=== PATIENT | male | born 1980 | race Caucasian/White ===

== ENCOUNTER 2017-03-12 11:38 | Emergency (ER) | payer OTHER ==
[~2017-03-12] VITALS: Ht 185.4 cm; Wt 77.3 kg
[2017-03-12 11:45] VITALS: PULSE 65; RESP 20; O2SAT 100
--- NOTE | 2017-03-12 12:17 | ED.REPORT ---
HPI-Abd Pain M Under 38 Date of Service Mar 12, 2017 ED Provider: Ron Toussaint PA-C Anh is a 36-year-old male presenting to emergency Department with complaint of nausea and vomiting. Forte 7 year history of episodes of intractable vomiting requiring treatment in hospital. Reports typically improves with fluids, antiemetics, and Dilaudid. States they use to occur on 3-4 month basis, is roughly one year since he has had similar episode. This episode began 2 days ago. Patient sought care at the [facility] urgent care. Labs and CT were performed which were all reassuring per the patient. Discharged after fluids, antiemetics significant improvement. Reports eating relatively normally yesterday. Symptoms recurred this morning and he sought care at the [facility]. Treated there with 2 L normal saline, antiemetics. Labs and abdominal x-ray were obtained, all reassuring. Symptoms were not significant improved however the patient is referred to the emergency department. Admits repeated episodes of vomiting and retching, non-ileus, nonbloody. Admits one episode of diarrhea prior to the onset of symptoms. Admits diffuse crampy abdominal pain, headache, chills. Admits history of migraines, daily nearly continuous use of marijuana which he smokes. Denies fever, urinary symptoms Nursing Notes Stated Complaint: STOMACH PAIN Chief Complaint: Male Abdominal Pain Nursing Notes Reviewed: Yes Allergies: Coded Allergies: No Known Allergies (Unverified , 03/12/17) Scheduled Ondansetron ODT (Ondansetron ODT) 8 Mg Tab.rapdis 8 MG PO TID Scheduled PRN Metoclopramide ODT (Metoclopramide ODT) 5 Mg Tab.rapdis 5 MG PO QID PRN PRN For Nausea General Time Seen by MD: 11:50 Chief Complaint Other (vomiting) Past Medical History Past Medical History Migraines Social History Drug Use: Other (daily marijuana) Review of Systems General: Denies fever, chills, malaise. HEENT: That headache Respiratory: Denies dyspnea, cough, shortness of breath, wheezing. Cardiovascular: Denies chest pain, palpitations. Gastrointestinal: Mid abdominal pain, diarrhea, vomiting Otherwise as noted in HPI. Physical Exam General: Ill appearing, well developed, well nourished, moderate distress. Head: Atraumatic, normocephalic. Eyes: No scleral icterus or injection. No discharge. Vision grossly intact. ENT: Voice clear, hearing grossly intact. Respiratory: Regular rate and rhythm. Breath sounds present, clear to auscultation and equal bilaterally. No respiratory distress. No increased work of breathing, speaks in complete sentences. Cardiovascular: Regular rate and rhythm, without murmur, gallop or rub. No pedal edema. Gastrointestinal: Abdomen flat and non-tender without guarding or rebound. Bowel sounds normoactive. Back: Normal to inspection, negative CVA tenderness. Skin: Warm and dry. Neurological: Grossly nonfocal. Psychological: Alert and oriented. Speech appropriate, linear and logical. Behavior appropriate. Initial Vital Signs Vital Signs (First) Date Time Temp Pulse Resp B/P Pulse Ox O2 Delivery O2 Flow Rate FiO2 03/12/17 11:45 37 65 20 100 Room Air 03/12/17 13:56 121/74 Interpretation & Diagnostics Interpretation & Diagnostics: Records obtained from [facility] of visit 03/10/2017 indicating leukocytosis of 17.56 with a left shift unremarkable urinalysis, normal lipase, normal CMP. CT abdomen and pelvis with IV contrast is significant for "1. mild nonspecific periportal edema in the liver. 2. Unusual pattern of gastric fold thickening, and sequestration of the duodenum and proximal volar jejunal loops, without bowel distention, free air or convincing pneumatosis. Findings may represent an unusual presentation of infectious/inflammatory enteritis. If symptoms persist, recommend close follow-up with abdominal radiographs and/or CT." Lab Results Interpretation Test 03/12/17 12:52 03/12/17 13:24 Hold Chavez Top Tube Received (Received) Hold Purple Top Tube Received (Received) Hold Blue Top Tube Received (Received) Hold Milroy Top Tube Received (Received) Re-Eval/Medical Decision Med Decision/Clinical Course Otherwise healthy 36-year-old male with a history of cyclical vomiting. Since emergency Department with nausea and vomiting. First began 2 days ago, treated at [facility] in [place], with some improvement. Labs there showed leukocytosis with a left shift, CT scan is generally reassuring though shows gastric fold, fecal is aeration of the duodenum and proximal jejunal loops without bowel distention. Otherwise unremarkable him a discharged in improved condition. Reports normal diet yesterday, worse symptoms this morning. Seen at the [facility], treated with normal saline and antiemetics with minimal improvement. Reassuring abdominal x-ray. Patient has referral for GI from the [facility]. Referred to emergency department because symptoms cannot be resolved. Records are obtained from [facility] and reviewed. Physical examination is generally benign with a nontender abdomen, though the patient appears quite uncomfortable and is retching. Vital signs are normal. Treatment is initiated with IV, NS, Reglan, Benadryl, dexamethasone. Symptoms improved. On reexamination the patient remains nauseous. Haldol is provided which is helpful, patient wishes to be discharged to home. I believe this is most likely cannabis hyperemesis syndrome and advised patient that period of abstinence would be necessary to confirm this. I am reassured against more concerning conditions such as a bacterial gastroenteritis, obstruction, cholecystitis, appendicitis, ulcer, perforation, upper GI bleed, diabetic gastroparesis. I discussed the case with Dr. Salgado and we believe he is stable and safe to be discharged. Advised patient to follow through on the GI follow-up arranged at the [facility]. Provided prescriptions for ondansetron and Reglan. Advised regarding primary care follow-up, provided emergency return precautions. Patient verbalized understanding of, and consent to, the plan. Re-Evaluation/Progress #1: Time of Eval: 13:36 Re-Evaluation/Progress Note: Report some improvement, continuing nausea. Re-Evaluation/Progress #2: Time of Eval: 14:38 Re-Evaluation/Progress Note: Patient reviewed reports no more vomiting, significant reduction in nausea, negative pain. Wishes to be discharged home. Consultation : Referral / Consult Name: [facility] Call Returned at: 12:31 Note: Discussed case with Dr. Robert Garcia of the [facility]. He reports reassuring workup as described in history of present illness. CBC in his clinic reveals leukocytosis of 11.9 which is reduced from 17 on Saturday. Lipase mildly elevated 97. Range of CBC and CMP are reassuring. Reports abdominal plain films are reassuring for obstruction. The patient has a GI referral through the [facility]. Dr. Garcia states that he referred the patient to emergency department because he could not resolve his symptoms. Patient Discharge & Departure Primary Impression: Vomiting Vomiting type: unspecified Vomiting Intractability: non-intractable Nausea presence: with nausea Qualified Code: R11.2 - Nausea with vomiting, unspecified Additional Impression: Generalized abdominal pain Disposition: Home Discharge Condition All VS Reviewed: Yes Condition: Stable Additional Instructions: Evaluation for abdominal pain and vomiting in the emergency department includes interview, physical examination, review of records and consultation with the referring physician. All of these are reassuring that this is not caused by immediately dangerous condition. Later stable and safe to go home. The condition seems to have improved significantly with her treatment here in the emergency department. I will write a prescription for metoclopramide and ondansetron. I am quite suspicious that this could be cannabis hyperemesis syndrome, cyclical vomiting related to use of marijuana. This can only be confirmed by a trial of abstinence from marijuana lasting at least 6 months. Follow-up with GI as you have previously arranged through the [place] [facility]. Return to the emergency department for any new or worsening symptoms including increasing pain, vomiting does not respond to medication, fever, blood in your vomit. Referrals: [facility] Provider for APC: Augie Salgado MD, Seth PA-C Mar 12, 2017 12:17
[2017-03-12] MEDS ORDERED: 0.9% Sodium Chloride 1,000 ML IV ONE (12:19)
[2017-03-12] MEDS ORDERED: MetoCLOpramide 5 mg/mL 2 mL Inj IVPUSH ONE (12:20)
[2017-03-12] MEDS ORDERED: Dexamethasone 10 mg/mL Inj IVPUSH ONE (12:20)
[2017-03-12] MEDS ORDERED: Acetaminophen IV 1,000 MG in IV Premix 1 EACH IV ONE (12:20)
[2017-03-12] MEDS ORDERED: Haloperidol 5 mg/mL Inj IVPUSH ONE (13:30)
[2017-03-12 13:56] VITALS: BP 121/74; PULSE 71; RESP 20; O2SAT 99
[2017-03-12] MEDS ORDERED: Ondansetron 2 mg/mL 2 mL Inj IVPUSH ONE (14:45)
[2017-03-12] MEDS ORDERED: METO5TAB87 PO (14:46)
[2017-03-12] MEDS ORDERED: ONDA8TAB10 PO (14:46)
== END 2017-03-12 14:50 | disposition home or self-care (01) ==
LOC: SED 11:38
DX: R11.2 Nausea with vomiting, unspecified (principal); R10.84 Generalized abdominal pain; F12.10 Cannabis abuse, uncomplicated
CPT/HCPCS: 96361; 96374; 96375; 99284; J0131; J1100; J1200; J1630; J1885; J2765; J7030